=== PATIENT | female | born 1970 | race Caucasian/White ===

== ENCOUNTER 2017-08-02 12:14 | Outpatient (RCR) | payer BC | END 2017-10-31 | disposition home or self-care (01) | LOC: CARD 12:14 | PROVIDERS: ATTEND Internal Medicine Cardiovascular Disease | DX: I10 Essential (primary) hypertension (principal); E78.2 Mixed hyperlipidemia; R00.2 Palpitations; F41.9 Anxiety disorder, unspecified | CPT/HCPCS: 93225; 93226 ==

== ENCOUNTER → 2017-08-02 | Outpatient (CLI) | payer BC ==
[~2017-08-02] MED LIST: ACHYD1T PO; CYCL10TA45 PO; HYDR-2890 PO; HYDR-3876 PO; IBUP200T48 PO; NAPR250T2 PO; NITR-33 PO; NITR100C PO; ZOLP5TAB6 PO
== END ==
LOC: CARD 11:55
PROVIDERS: ATTEND Internal Medicine Cardiovascular Disease
DX: I10 Essential (primary) hypertension (principal); E78.2 Mixed hyperlipidemia; R00.2 Palpitations; F41.9 Anxiety disorder, unspecified
CPT/HCPCS: 93306

== ENCOUNTER → 2018-02-13 | Outpatient (CLI) | payer BC ==
--- NOTE | 2018-02-13 10:50 | Diagnostic Imaging Report ---
PROCEDURE: US right lower extremity venous. INDICATION: Right leg pain. EXAMINATION: Grayscale and color Doppler evaluation of the deep veins of the right lower extremity were performed with waveform analysis. FINDINGS: Continuous venous flow is present. No intraluminal filling defect is identified. There is normal compressibility and response to augmentation. No abnormal perivascular fluid collection is identified. No mass or fluid collection is seen to correspond to patient's site of tenderness. IMPRESSION: No ultrasound evidence of right lower extremity deep venous thrombosis. Dictated by: Dictated on workstation # [id number]
== END ==
LOC: RAD 09:34
PROVIDERS: ATTEND Family Medicine
DX: M79.604 Pain in right leg (principal)